=== PATIENT | male | born 1990 | race Caucasian/White ===

== ENCOUNTER 2022-05-29 16:10 | Emergency (ER) | payer OTHER ==
[2022-05-29 16:24] VITALS: BP 114/86
[2022-05-29] MEDS ORDERED: LIDOCAINE 2%-EPI 1:100000 20 ML MDV SUBQ STA (16:43)
[2022-05-29] MEDS ORDERED: lidocaine 1% 20 ML MDV ONE (16:46)
[2022-05-29] MEDS ORDERED: TETANUS/DIPHTHERIA/PERTUSSIS 0.5 ML SYRINGE IM ONE (17:07)
[2022-05-29] MEDS ORDERED: BACITRACIN ZINC OINT 1 PACKET TOP STA (17:07)
--- NOTE | 2022-05-29 17:09 | ED Physician Documentation ---
PD HPI UPPER EXT INJURY - Stated complaint Stated Complaint: LT HAND LAC - Chief complaint Chief Complaint: Laceration - History obtained from History obtained from: Patient - History of Present Illness Location: Left, Hand Pain level max: 4 Pain level now: 3 Improved by: Rest Worsened by: Moving, Palpating Recently seen: Not recently seen - Additonal information Additional information: 31-year-old male presents to the emergency department with a left hand laceration. He was using a knife to open a box when he accidentally cut his left hand. Better with rest, worse with movement. Unknown last tetanus. States mild numbness to the left thumb. Review of Systems Constitutional: denies: Fever, Chills GI: denies: Vomiting, Diarrhea Skin: denies: Rash Musculoskeletal: denies: Neck pain, Back pain Neurologic: denies: Headache PD PAST MEDICAL HISTORY - Past Medical History Past Medical History: No - Past Surgical History Past Surgical History: No - Allergies Allergies/Adverse Reactions: Allergies Allergy/AdvReac Type Severity Reaction Status Date / Time No Known Drug Allergies Allergy Verified 05/29/22 16:24 - Living Situation Living Situation: reports: With family Living Arrangement: reports: At home - Family History Family history: reports: Non contributory - Immunizations Immunizations are current?: Yes Immunizations: TDAP >10years/unknown PD ED PE NORMAL - Vitals Vital signs reviewed: Yes - General General: Alert and oriented X 3, No acute distress - HEENT HEENT: Moist mucous membranes - Derm Derm: Warm and dry - Extremities Extremities: Other (There is a 6 cm laceration to the left thenar eminence. Neurovascularly intact. Full range of motion of the thumb.) - Neuro Neuro: Alert and oriented X 3 - Psych Psych: Normal mood, Normal affect Results - Vitals Vitals: Vital Signs - 24 hr 05/29/22 16:21 Temperature 36.1 C L Heart Rate 74 Respiratory 16 Rate Blood Pressure 114/86 H O2 Saturation 100 Procedures - Laceration (location) Left hand, thenar eminence Length in cm: 6 Wound type: Linear, Into subcut fat, Clean Neurovascular status: Sensory intact, Motor intact, Vascular intact Tendon involvement: Tendon intact Anesthesia: Lidocaine 1% Wound preparation: Irrigated copiously NS, Wound explored, To the base Skin layer closure: Nylon, Interrupted, Size #-0 - enter number (4), Sutures - enter # (9) Other: Patient tolerated well, No complications, Neurovascular intact, Dressing applied, Tetanus booster given PD Medical Decision Making - ED course Complexity details: considered differential, d/w patient ED course: Laceration repaired. Tolerated well. Neurovascular intact. We will place in a thumb spica splint to immobilize the area to give it a few days to heal. Warnings of infection and instructions on wound care given at bedside. Also counseled on how to minimize scarring. Patient counseled regarding signs and symptoms for which I believe and urgent re-evaluation would be necessary. Patient with good understanding of and agreement to plan and is comfortable going home at this time This document was made in part using voice recognition software. While efforts are made to proofread this document, sound alike and grammatical errors may occur. Tdap given Departure - Departure Disposition: 01 Home, Self Care Clinical Impression: Hand laceration Qualifiers: Encounter type: initial encounter Foreign body presence: without foreign body Laterality: left Qualified Code(s): S61.412A - Laceration without foreign body of left hand, initial encounter Condition: Good Instructions: ED Laceration Hand Follow-Up: WILFREDO ARMIJO MD [Primary Care Provider] - Comments: Keep the wound clean. Return if you notice redness, swelling or drainage from the wound. You should use a thumb spica splint for the next 2 to 3 days to help minimize movement in the area. You can take it off to wash the area gently. Follow-up with your doctor in about 14 days for suture removal. Alternatively y ou can return here for suture removal. Discharge Date/Time: 05/29/22 17:13
== END 2022-05-29 17:13 | disposition home or self-care (01) ==
LOC: ED 16:10
DX: S61.412A Laceration without foreign body of left hand, initial encounter (principal); W27.8XXA Contact with other nonpowered hand tool, initial encounter; Y93.89 Activity, other specified
CPT/HCPCS: 12002; 90471; 90715; 99282; A9270